=== PATIENT | male | born 1960 | race Caucasian/White ===

== ENCOUNTER 2022-08-08 16:10 | Emergency (ER) | payer MEDICAID, SELFPAY ==
[2022-08-08 16:11] VITALS: BP 185/110; PULSE 55; RESP 18; TEMP 36.7; O2SAT 100; BMI 28.5
--- NOTE | 2022-08-08 16:51 | ECG_ITS ---
APPROVED REPORT Exam: Resting ECG HR:49 bpm ECG Measurements Heart Rate 49 AXES NC 161 P 59 QRSd 98 QRS 0 QT 446 T 43 QTc 418 Conclusion SINUS BRADYCARDIA BORDERLINE ECG UNCONFIRMED REPORT Electronically signed by : Kartik Templeton MD 08/09/2022 20:03:49
[2022-08-08 17:01] VITALS: BP 175/107; PULSE 55; O2SAT 97
[2022-08-08 17:07] LABS: Chloride 102 mmol/L (98-107); Potassium 4.7 mmoL/L (3.5-5.1); Sodium 140 mmol/L (136-145)
[2022-08-08 17:10] LABS: Alanine Aminotransferase 126 U/L (12-78); Albumin Level 4.7 g/dl (3.5-5.0); Albumin/Globulin Ratio 1.5 (1.1-1.8); Alkaline Phosphatase 96 U/L (38-126); Anion Gap 13.7 mEq/L (5-15); Aspartate Amino Transferase 83 U/L (17-59); Bilirubin,Total 1.4 mg/dl (0.2-1.3); Blood Urea Nitrogen 11 mg/dl (9-20); Carbon Dioxide 29 mmol/L (22.0-30.0); Creatinine Clearance Estimated 101 mL/min (50-200); Estimated Glomerular Filt Rate 85 ml/min (>60); GFR (African American) 103 ML/MIN (>60); Globulin 3.1 g/dL (1.3-3.2); Total Protein,Serum 7.8 g/dl (6.3-8.2)
[2022-08-08 17:11] LABS: Calcium 8.7 mg/dl (8.4-10.2); Glucose 90 mg/dl (74-100)
--- NOTE | 2022-08-08 17:15 | PC.NURSE ---
DR. STEVENS AT BEDSIDE
[2022-08-08 17:24] LABS: Basophils # 0.1 K/mm3 (0-0.2); Basophils % 1.7 % (0.1-2.0); Eosinophils # 0.6 K/mm3 (0.0-0.4); Eosinophils % 8.6 % (0.1-12.0); Hematocrit 49.5 % (42.0-52.0); Hemoglobin 17.1 g/dL (14.1-18.0); Lymphocytes # 2.3 K/mm3 (0.7-4.5); Lymphocytes % 32.3 % (10-50); Mean Corpuscular HGB Conc 34.5 g/dL (31.8-35.4); Mean Corpuscular Hemoglobin 32.7 pg (27.0-31.2); Mean Corpuscular Volume 94.6 fl (80-94); Monocytes # 0.4 K/mm3 (0.1-1.0); Monocytes % 5.7 % (1.7-9.3); Neutrophils # 3.6 K/mm3 (1.8-7.8); Neutrophils % 51.7 % (37.0-80.0); Platelet Count 280 K/mm3 (142-424); Red Blood Count 5.23 M/mm3 (4.60-6.20); Red Cell Distribution Width 12.6 % (11.5-17.5)
[2022-08-08 17:25] LABS: Troponin I < 0.01 ng/ml (0.00-0.034)
--- NOTE | 2022-08-08 17:26 | XR_ITS ---
PROCEDURE INFORMATION: Exam: XR Chest Exam date and time: 08/08/2022 5:24 PM Age: 62 years old Clinical indication: Right-sided; Patient HX: Right sided scapula pain, hypertension; Additional info: Pain R scapular area TECHNIQUE: Imaging protocol: Radiologic exam of the chest. Views: 2 views. COMPARISON: No relevant prior studies available. FINDINGS: Lungs: Clear lungs. Pleural spaces: No pneumothorax. No sizable pleural effusion. Heart/Mediastinum: No cardiomegaly. Bones/joints: Unremarkable. IMPRESSION: Clear lungs.
--- NOTE | 2022-08-08 17:26 | XR_ITS ---
PROCEDURE INFORMATION: Exam: XR Cervical Spine Exam date and time: 08/08/2022 5:25 PM Age: 62 years old Clinical indication: Radicular pain (radiculopathy); Cervical region; Patient HX: Neck pain/stiffness; Additional info: Possible radicular pain TECHNIQUE: Imaging protocol: Radiologic exam of the cervical spine. Views: 2 or 3 views. COMPARISON: CR XR CHEST 2V 08/08/2022 5:24 PM FINDINGS: Bones/joints: Disc space narrowing C5-C6 and C6-C7. Reversal of the usual cervical lordosis. Soft tissues: Unremarkable. IMPRESSION: 1. Disc space narrowing C5-C6 and C6-C7. 2. Reversal of the usual cervical lordosis.
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
--- NOTE | 2022-08-08 17:33 | PC.NURSE ---
PT TO XR
[2022-08-08 17:39] VITALS: BP 180/102; PULSE 53; RESP 18; O2SAT 98
--- NOTE | 2022-08-08 17:47 | PC.NURSE ---
PT MEDICATED PER EMAR, NO NEEDS AT THIS TIME
--- NOTE | 2022-08-08 18:43 | PC.NURSE ---
DR. STEVENS AT BEDSIDE
[2022-08-08 19:15] VITALS: BP 170/96; PULSE 60; RESP 18; TEMP 36.8; O2SAT 99
== END 2022-08-08 19:15 | disposition home or self-care (01) ==
PROVIDERS: Emergency Provider Emergency Medicine; PCP Family Medicine
DX: M54.6 Pain in thoracic spine (principal); I10 Essential (primary) hypertension; M54.12 Radiculopathy, cervical region
CPT/HCPCS: 71046; 72040; 80053; 84484; 85025; 93005; 96374; 96375; 99285; J2405

== ENCOUNTER 2024-11-19 11:54 | Emergency (ER) | payer MEDICARE, SELFPAY ==
[2024-11-19] VITALS (7 sets, daily range): BP systolic 161–208; BP diastolic 90–104; PULSE 62–64; RESP 12–18; TEMP 36.7–36.8; O2SAT 98–99; BMI 28.3
--- NOTE | 2024-11-19 12:06 | ECG_ITS ---
APPROVED REPORT Exam: Resting ECG HR:58 bpm ECG Measurements Heart Rate 58 AXES ID 155 P 56 QRSd 99 QRS -2 QT 410 T 47 QTc 407 Conclusion SINUS BRADYCARDIA BORDERLINE ECG No STEMI Electronically signed by : ROB ERNANDEZ, 11/20/2024 00:22:10
--- NOTE | 2024-11-19 12:06 | PC.NURSE ---
pt brought back to room, report received from yunier sharp
--- OUTSIDE RECORDS SUMMARY | 2024-11-19 12:15 | XMS_ITS | Data Portability ---
Author Organization L[facility] - YAHAIRA - Kassidy & YAHAIRA Villalpando ADMIN Address [address] [place] [id number] Care Team Providers Care Bandage Maker Name Role Phone [facility] Primary Care Provider Assessment Encounter Date Assessment Date Assessment LastModified by Organization Details LastModified Time 01/06/2023 01/06/2023 since the patient at this time is completely asymptomatic for the last 2 months he has decided to wait. I have explained to him the problem that he has that is most likely gallbladder dyskinesia with a lacy gallbladder and he understood what the problem is. So the plan is for observation and if he has pain again he will call us to have his gallbladder removed. Not available 01/06/2023 10:00:47 Plan of Treatment Reminders Order Date Submit Date Provider Last Modified By Organization Details Last Modified Time Details Appointments None recorded. Lab CMP, serum or plasma 2022 023 [email or web address] 2 [facility] (Lab Registration) , [address] [place] [address] [place], [address], 3 07:21:50 Referral vascular surgeon referral 2022 023 [email or web address] 2 Not available 3 15:11:51 Procedures None recorded. Surgeries None recorded. Imaging US, abdomen, limited - Pt is scheduled for US right upper quadrant 10/25 @ 4:00 2022 023 [facility] [address] [place] [address] [place], [address], 3 17:05:37 XR, abdomen, 1 view 2022 023 [facility] (Central Scheduling), [address] [place] [address] [place], [address], 3 17:05:36 NM, hepatobilia ry scan, w/ CCK - First available not on a Tuesday 023 4 [facility] Centralized Scheduling, [address] [place], [address], 3 15:29:14 Medication Orders pantoprazol e 40 mg tablet,vitaly yed release 2022 023 [email or web address] [facility][id number], [address], [phone], 3 12:16:54 ondansetron 4 mg disintegrat ing tablet 2022 023 [facility][id number], [address], [id number], 3 09:23:17 Patient TargetsNo targets recorded. Patient InstructionsNo instructions recorded. Reason for Referral Vascular Surgeon Referral fo r Abdominal aortic aneurysm Referring Physician: Estrella Shahid, Gastroenterology, Encounter Date: 10/25/2022 Results Created Date Observation Date Name Description Value Unit Range Abnormal Flag Note LastModifiedBy Organization Detail LastModifiedTime 10/26/1910/25/2022 COMP METAB OLIC PANEL sodium 140 mmol/ L 137-14 7 Not Available [facility] (Pre-Op Clinic) [address] [place] [address] [place], [address], 10/25/2022 18:39:31 10/26/19 23 10/25/2022 COMP METAB OLIC PANEL potassium 3.7 mmol/ L 3.5-5. 1 Not Available [facility] (Pre-Op Clinic) [address] [place] [address] [place], [address], 10/25/2022 18:39:31 10/26/19 23 10/25/2022 COMP METAB OLIC PANEL chloride 104 mmol/ L 98-110 Not Available [facility] (Pre-Op Clinic) [address] [facility] [place], [address], 10/25/2022 18:39:31 10/26/19 23 10/25/2022 COMP METAB OLIC PANEL carbon dioxide 29 mmol/ L 21-30 Not Available [facility] (Pre-Op Clinic) [address] [facility] [place], [address], 10/25/2022 18:39:31 10/26/19 23 10/25/2022 COMP METAB OLIC PANEL anion gap 7 mmol/ L 6-14 Not Available [facility] (Pre-Op Clinic) [address] [facility] [place], [address], 10/25/2022 18:39:31 10/26/19 23 10/25/2022 COMP METAB OLIC PANEL glucose 96 mg/dL 70-115 Not Available [facility] (Pre-Op Clinic) [address] [facility] [place], [address], 10/25/2022 18:39:31 10/26/19 23 10/25/2022 COMP METAB OLIC PANEL BUN 17 mg/dL 9-20 Not Available [facility] (Pre-Op Clinic) [address] [facility] [place], [address], 10/25/2022 18:39:31 10/26/19 23 10/25/2022 COMP METAB OLIC PANEL creatinine 0.9 mg/dL 0.5-1. 5 Not Available [facility] (Pre-Op Clinic) [address] [facility] [place], [address], 10/25/2022 18:39:31 10/26/19 23 10/25/2022 COMP METAB OLIC PANEL BUN/creatini ne ratio 19 ratio 10-20 Not Available [facility] (Pre-Op Clinic) [address] [place] [address] [place], [address], 10/25/2022 18:39:31 10/26/19 23 10/25/2022 COMP METAB OLIC PANEL glom filtration rate 90 mL/mi n >60- Not Available [facility] (Pre-Op Clinic) [address] [facility] [place], [address], 10/25/2022 18:39:31 10/26/19 23 10/25/2022 COMP METAB OLIC PANEL osmolality (calculated) 293 mosmo l/kg 275-30 1 OSMOL ALITY IS A CALCU LATIO N UTILI ZING THE SERUM /PLAS MA SODIU M, GLUCO SE AND UREA NITRO GEN (BUN) LEVEL S. FOR THE MOST ACCUR ATE RESUL T A MEASU RED SERUM OSMOL ALITY IS SUGGE STED. Not Available [facility] (Pre-Op Clinic) [address] [facility] [place], [address], 10/25/2022 18:39:31 10/26/19 23 10/25/2022 COMP METAB OLIC PANEL total protein 8.2 g/dL 6.2-8. 2 Not Available [facility] (Pre-Op Clinic) [address] [place] [address] [place], [address], 10/25/2022 18:39:31 10/26/19 23 10/25/2022 COMP METAB OLIC PANEL albumin 4.9 g/dL 3.5-5. 0 Not Available [facility] (Pre-Op Clinic) [address] [place] [address] [place], [address], 10/25/2022 18:39:31 10/26/19 23 10/25/2022 COMP METAB OLIC PANEL calcium 9.2 mg/dL 8.5-10 .8 Not Available [facility] (Pre-Op Clinic) [address] [place] [address] [place], [address], 10/25/2022 18:39:31 10/26/19 23 10/25/2022 COMP METAB OLIC PANEL bilirubin total 2.9 mg/dL 0.2-1. 3 high Not Available [facility] (Pre-Op Clinic) [address] [facility] [place], [address], 10/25/2022 18:39:31 10/26/19 23 10/25/2022 COMP METAB OLIC PANEL AST (SGOT) 41 IU/L 17-59 Not Available [facility] (Pre-Op Clinic) [address] [place] [address] [place], [address], 10/25/2022 18:39:31 10/26/19 23 10/25/2022 COMP METAB OLIC PANEL ALT (SGPT) 68 IU/L 0-50 high Pleas e note new refer ence inter vishnu for ALT. Due to a recen t manuf actur er metho dolog y michaud e, the refer ence inter vishnu for ALT is lower effec tive November 27, 2020. Not Available [facility] (Pre-Op Clinic) [address] [place] [address] [place], [address], 10/25/2022 18:39:31 10/26/19 23 10/25/2022 COMP METAB OLIC PANEL alk phosphatase 84 IU/L 38-126 Not Available [facility] (Pre-Op Clinic) [address] [place] [address] [place], [address], 10/25/2022 18:39:31 10/26/19 23 10/25/2022 COMP METAB OLIC PANEL note Unles s other bradshaw noted testi ng perfo [facility] at: [facility] [address] [place] [address] Bola faye MD Not Available [facility] (Pre-Op Clinic) [address] [place] [address] [place], [address], 10/25/2022 18:39:31 10/26/19 23 10/25/2022 XR, abdom en, 1 view [facility] [address] [place] [address] (Phone ) DIAGNO STIC IMAGIN G REPORT ------ ------ ------ ------ ------ ------ ------ ------ ----- Rain bairon Name: RIZWAN HONG No: [id number] 1 Medica l Record No: [id number] Date of : 1959 Access ion No: [id number] Date of Exam: 2022 Pavithrabriana waddell Type: Outpat ient Orderi ng Physic chele: ESTRELLA SARABIA ------ ------ ------ ------ ------ ------ ------ ------ ----- FINAL REPORT PROCED URE: ABD KUB 1V CLINIC AL HISTOR Y: Right upper quadra nt pain COMPAR MICHELLE: None FINDIN GS: ABDOME N SINGLE VIEW / KUB A single view of the abdome n was obtain ed with a coned down view of the pelvis . There is a nonspe cific bowel gas patter n. There is no signif icant stool burden . There are no abnorm ally dilate d loops of small bowel. No nephro lithia sis. There are probab le phlebo liths in the pelvis . IMPRES NOLBERTO: No acute proces s. Review ed, Interp reted and Dictat ed by Goldie Reynolds MD Transc ribed by Kaye Dong Authbriana ticate d and Electr onical ly Signed by Goldie Reynolds MD on 2022 05:03: 04 PM EASTCHELY N CC'ed Logic: Orderi ng Provid er: CHEPE DE LA ROSA CC Provid er: SHEKHAR DEMPSEY Attend ing Provid er: CHEPE DE LA ROSA Referr ing Provid er: CHEPE DE LA ROSA Admitt ing Provid er: CHEPE [email or web address] [facility] [address] [place] [address] [place], [address], 10/26/2022 12:49:31 10/26/19 23 10/25/2022 US, abdom en, limit ed [facility] [address] [facility] [place] [address] (Phone ) DIAGNO STIC IMAGIN G REPORT ------ ------ ------ ------ ------ ------ ------ ------ ----- Rain bairon Name: RIZWAN HONG No: [id number] 1 Medica l Record No: [id number] Date of : 1959 Access ion No: [id number] Date of Exam: 2022 Pavithrabriana waddell Type: Outpat ient Orderi ng Physic chele: ESTRELLA SARABIA ------ ------ ------ ------ ------ ------ ------ ------ ----- FINAL REPORT PROCED URE: US RIGHT UPPER QUADRA NT TECHNI QUE: Ultras ound images of the right upper quadra nt were obtain ed. CLINIC AL HISTOR Y: Epigas tric pain and pressu re, nausea and vomiti ng COMPAR MICHELLE: None FINDIN GS: Limite d images of the pancre as are obscur ed by bowel gas. The liver is normal in size. There is fatty infilt ration . There is a small amount of perich olecys tic fluid. There is gone bladde r wall thicke charlee at 4 mm. There are no gallst ones. Common duct is normal measur ing 4 mm. Consid er acalcu adair cholec ystiti s. HIDA scan may be helpfu l. In the mid abdomi nal aorta there is focal dilata tion. The lumen at this level measur es 33 mm. There is hypoec hoic materi al in the catering assistant ior aspect of the lumen and actual AP diamet er of the aneury sm may be closer to [address] scan for furthe r evalua tion. Limite d images of the right kidney are unrema rkable . IMPRES NOLBERTO: Gallbl adder wall thicke charlee and minima l perich olecys tic fluid withou t gallst one. Consid er acalcu adair cholec ystiti s. HIDA scan may be helpfu l. Abdomi nal aortic aneury sm as descri bed. CT abdome n and pelvis with IV contra st may be helpfu l. Fatty infilt ration of the liver. Review ed, Interp reted and Dictat ed by Goldie Reynolds MD Transc ribed by Kaye Dong Authen ticate d and Electr onical ly Signed by Goldie Reynolds MD on 2022 05:03: 04 PM LINDA Aragon CC'ed Logic: Orderi ng Provid er: CHEPE DE LA ROSA CC Provid er: SHEKHAR DEMPSEY Attend ing Provid er: CHEPE DE LA ROSA Referr ing Provid er: HCEPE DE LA ROSA Admitt ing Provid er: CHEPE [email or web address] [facility] (Central Scheduling) [address] [place] [address] [place], [address], 10/26/2022 12:49:31 01/07/20 23 11/10/2022 imagi ng inter preta tion No observ ation record ed. [address] (Radiology) [address] [place] [address] , [place], [address], 01/07/2023 11:17:55 Result Notes None recorded. Problems Name Problem SNOMED Code Status Onset Date Resolution Date Notes Provider Name and Address Organization Details Recorded Time Hypercholestero lemia 21327723 Active 2022 [facility] Brown - [facility] [place] & [place] 3 11:12:54 Hypertensive disorder 67297036 Active 2022 Virginia palma, [facility] - [facility] - [place] & [place] 3 11:13:05 Problem Notes None recorded. Procedures Surgical History Date Name Laterality Status Provider Name and Address Organization Details Recorded Time colonoscopy completed Virginia BLACKMON - [facility] - [place] & [place] 10/25/2022 11:13:25 Imaging Results Imaging Date Name Status LastModified by Organization Details LastModified Time 10/25/2022 XR, abdomen, 1 view completed [email or web address] [facility] (Central Scheduling) [address] [place] [address] [place], [address], 10/26/2022 12:49:31 10/25/2022 US, abdomen, limited completed [email or web address] [facility] (Central Scheduling) [address] [place] [address] [place], [address], 10/26/2022 12:49:31 11/10/2022 imaging interpretation completed [address] (Radiology) [address] [place] [address] [place], [address], 01/07/2023 11:17:55 Procedure Notes None recorded. Medical Equipment None Reported. Allergies No known drug allergies Medications Name Sig Start Date Stop Date Status Note LastModified by Organization Details LastModified Time hydrocodone 5 mg-acetamin ophen 325 mg tablet TAKE 1 TABLET BY MOUTH EVERY 6 HOURS NEEDED FOR PAIN 01/06 completed Not Available Not Available Not Available lovastatin 40 mg tablet TAKE 2 TABLETS BY MOUTH EVERY DAY active Not Available Not Available No t Available hydralazine 25 mg tablet TAKE 1 TABLET BY MOUTH FOUR TIMES DAILY WITH FOOD 01/06 completed Not Available Not Available Not Available diazepam 2 mg tablet TAKE 1 TABLET BY MOUTH THREE TIMES DAILY NEEDED FOR SEDATION 10/24 completed Not Available Not Available Not Available pantoprazol e 40 mg tablet,vitaly yed release TAKE 1 TABLET BY MOUTH EVERY DAY DIRECTED active Not Available Not Available No t Available lisinopril 10 mg tablet TAKE 1 TABLET BY MOUTH EVERY DAY active Not Available Not Available No t Available hydrochloro thiazide 12.5 mg capsule TAKE 1 CAPSULE BY MOUTH DAILY 10/24 completed Not Available Not Available Not Available polyethylen e glycol 3350 17 gram/dose oral powder MIX 17GRAMS WITH CLEAR LIQUID AND DRINK BY MOUTH NEEDED FOR 2 DAYS 10/25 completed Not Available Not Available Not Available methylpredn isolone 4 mg tablets in a dose pack TAKE 1 TABLET BY MOUTH DAILY 10/24 completed Not Available Not Available Not Available ondansetron 4 mg disintegrat ing tablet DISSOLVE 1 TABLET ON THE TONGUE EVERY 6 TO 8 HOURS FOR 10 DAYS NEEDED active Not Available Not Available No t Available naproxen 500 mg tablet TAKE 1 TABLET BY MOUTH EVERY 8 HOURS NEEDED 01/06 completed Not Available Not Available Not Available Dulcolax (bisacodyl) 5 mg tablet,vitaly yed release Take 2 tablets every day by oral route for 1 day. 10/24 completed Not Available Not Available Not Available Laxative (bisacodyl) 5 mg tablet TAKE 2 TABLETS BY MOUTH ONCE FOR 1 DOSE 10/25 completed Not Available Not Available Not Available BinaxNOW COVID-19 Ag Self Test kit TEST DIRECTED TODAY 10/24 completed Not Available Not Available Not Available Vitals Date Recorded Body height Body mass index (BMI) Body weight Body temperature Oxygen saturation Oxygen saturation in Arterial blood by Pulse oximetry Heart rate Systolic blood pressure Diastolic blood pressure Provider Name and Address Organization Details Last Updated DateTime 3 182.88 cm 28.1 kg/m2 79396.6 2 g 97.3 [degF] 98 % 98 % 86 /min 120 mm[Hg] 96 mm[Hg] Virginia Brooke [facility] & [place] 3 11:21:59 Date Recorded Body height Body mass index (BMI) Body weight Heart rate Oxygen saturation Oxygen saturation in Arterial blood by Pulse oximetry Respiratory rate Systolic blood pressure Diastolic blood pressure Provider Name and Address Organization Details Last Updated DateTime 3 182.88 cm 28.1 kg/m2 27019.6 2 g 60 /min 98 % 98 % 18 /min 130 mm[Hg] 80 mm[Hg] Jarrett Harris [facility] & [place] 3 09:21:00 Social History Question Answer Notes LastModified by Organizat ion Details LastModified Time Tobacco Smoking Status Former Smoker Virginia Brooke palma [facility] & [place] 10/25/2022 11:28:11 What Is Your Level Of Alcohol Consumption? Moderate [email or web address] Information not available 10/25/2022 Do You Use Any Illicit Or Recreational Drugs? No Information not available 10/25/2022 Sex: Unknown Functional Status None recorded. Mental Status None recorded. Family History Relationship Description Onset Age of this Age Resolved Age Notes LastModified by Organization Details LastModified Time Brother Disorder of endocrine system pt. added direct ly (10/24) [email or web address] Not available 10/24/2022 12:54:25 Father Myocardial infarction pt. added direct ly (10/24) [email or web address] Not available 10/24/2022 12:54:51 Medical History No medical history recorded. Past Encounters Encounter ID Performer Location Encounter Start Date Encounter Closed Date Diagnosis/Indication Diagnosis SNOMED-CT Code Diagnosis ICD10 Code Diagnosis Note [id number] LION Castanon [facility] [address] [place] [address] [place] PAIGE [id number] 10/25/2022 11:00:35 10/26/2022 10:32:22 Right upper quadrant pain 079580340 R10.11 Patient is seen today for upper abdominal pressure and bloating with associated nausea and vomiting that occurred following colonoscop y on 10/20/2022 . Is tender to palpation in the RUQ on exam. CT abdomen and pelvis without contrast performed 10/22/2022 in the ER demonstrat ed distended gallbladde r. Gallbladde r ultrasound ordered, demonstrat es wall thickening with minimal pericholec ystic fluid, possibly acalculus cholecysti tis. HIDA scan ordered for further evaluation . Nausea and vomiting 1692 1999 R11.2 Plan to recheck labs today. Will send Zofran in for symptoms. Patient advised to go to ED if symptoms become intractabl e or dizziness/ headache worsens. Indigestion 556633547 K3 0 Abdominal aortic aneurysm 477044114 I71.40 CT abdomen and pelvis without contrast performed in [facility] demonstrat ed atheroscle rosis with fusiform infrarenal abdominal aortic aneurysm measuring 3.[address] angiogram of the aorta also performed, report states the infrarenal abdominal aorta measures 3.8 x 3.2 cm transverse ly and demonstrat es mild peripheral mural thrombus. No evidence of dissection . Recommend referral to vascular surgery further evaluation of these findings. ED criteria again reviewed with patient. [id number] Dennys Norman MD [facility] [address] [place] [address] [place] [address] 01/06/2023 09:13:16 01/10/2023 10:19:48 Dyskinesia of gallbladder 913129911 K82.8 Health Concerns Section Related Observation LastModified by Organization Detai ls LastModified Time None Recorded Concern Status LastModified by Organization Details LastModified Time None Recorded Advance Directives Directive None Recorded Payers Encounter Date Sequence Insurance Name Policy Number Policy Tinajero Covered Member ID Tinajero Member ID Guarantor Name 10/25/2022 1 [employer] - [place] (MEDICAID REPLACEMENT - HMO) Baljeet Sanz [id number] Baljeet Sanz 01/06/2023 1 [employer] [facility] (MEDICAID REPLACEMENT - HMO) Baljeet Sanz [id number] Baljeet Sanz Notes Date Note Type Note Provider Name and Address Organization Details Recorded Time 10/25/2022 text/html This is a 62 year-old male who is seen today for evaluation of abdominal bloating, nausea and vomiting. Patient underwent uncomplicated colonoscopy on 10/30/22. 2 small polyps were removed via cold snare. Patient states that the evening after the colonoscopy he developed abdominal pressure and bloating. He Took Gas-X with improvement of symptoms. The next day he woke up with nausea that gradually progressed throughout the day. His symptoms worsened and he eventually went to [facility]. At that time CT imaging ruled out colonic perforation and he was discharged to follow-up in our clinic. Since that time he has continued to have upper abdominal bloating, pressure and dyspepsia. He also notes loose stools since the colonoscopy. He also admits to headache and dizziness. He has taken ibuprofen several times for symptoms. Presently, he continues experiencing nausea, vomiting and dizziness with epigastric bloating. eating makes symptoms worse. He denies a history of GERD or previous symptoms similar to this. His medical history is significant for high cholesterol. He does not use tobacco. LION Castanon [address] [place] [address], [address], [place], [address], [place] - [facility] - [place] & [place] 10/26/2022 10:04:38 01/06/2023 text/html 63-year-old male patient comes to the office with complaints of opened off abdominal pain and discomfort. Since October he is being seen in emergency room and also by his PCP and a vascular surgeon. He was found to have an aortic aneurysm but it was small and observation was warranted. The HIDA that he had done stopped at 120 minutes because he did not show the gallbladder which at that time it was likely that he had acute cholecystitis. Other x-rays did not show any gallstones. He has history of high blood pressure. His blood pressure today was 107/70 which he takes lisinopril His blood pressure is 130/80, heart rate of 60 and 95% O2 sat on room air. He he has had episodes of vomiting. He refers that this all started after he had a colonoscopy. I think the vomiting was due to post anesthesia ileus. And not related to the gallbladder. He has had right knee arthroscopic surgery. He refers that this pain has not come back in the last 2 months. So we have agreed that he is going to wait and if he feels pain again then he most likely needs his gallbladder removed. This is gallbladder dyskinesia due to the findings on the HIDA. Dennys Norman MD [address] [facility], [place], [address], [facility] & [place] 01/06/2023 10:01:21
[2024-11-19 12:17] LABS: Basophils # 0.1 K/mm3 (0-0.2); Basophils % 0.6 % (0.1-2.0); Eosinophils # 0.4 K/mm3 (0.0-0.4); Eosinophils % 4.2 % (0.1-12.0); Hematocrit 47.6 % (42.0-52.0); Hemoglobin 16.2 g/dL (14.1-18.0); Lymphocytes # 2.1 K/mm3 (0.7-4.5); Lymphocytes % 23.1 % (10-50); Mean Corpuscular Hemoglobin 31.7 pg (27.0-31.2); Mean Corpuscular Volume 93.2 fl (80-94); Monocytes # 0.7 K/mm3 (0.1-1.0); Monocytes % 7.6 % (1.7-9.3); Neutrophils # 5.8 K/mm3 (1.8-7.8); Neutrophils % 64.1 % (37.0-80.0); Nucleated Red Blood Cells # 0 10^3/uL; Nucleated Red Blood Cells % 0 %; Platelet Count 251 K/mm3 (142-424); Red Blood Count 5.11 M/mm3 (4.60-6.20); Red Cell Distribution Width 11.4 % (11.5-17.5); Red Cell Distribution Width-SD 39.1 fL; White Blood Count 9.1 K/mm3 (4.8-10.8)
--- NOTE | 2024-11-19 12:20 | XR_ITS ---
FINAL REPORT CLINICAL HISTORY: L upper chest/clavicle pain FINDINGS: LEFT CLAVICLE 2 views were obtained. There is no acute fracture or dislocation. There are mild hypertrophic changes at the acromioclavicular joint. No acute soft tissue abnormality is seen. IMPRESSION: Mild hypertrophic changes at the acromioclavicular joint with no acute bony abnormality. Reviewed, Interpreted and Dictated by Ananda Cheema MD Transcribed by Kita Mi Authenticated and [facility]
--- NOTE | 2024-11-19 12:20 | XR_ITS ---
FINAL REPORT TECHNIQUE: Chest PA & Lateral CLINICAL HISTORY: L upper chest/clavicle pain FINDINGS: 2 views of the chest were performed. The heart size is normal. The mediastinum is within normal limits. There is no acute cardiopulmonary process. There are no pleural effusions. There is no pneumothorax. The bony thorax appears intact. IMPRESSION: No acute cardiopulmonary process. Reviewed, Interpreted and Dictated by Ananda Cheema MD Transcribed by Kita Mi Authenticated and [facility]
[2024-11-19 12:30] LABS: Alanine Aminotransferase 52 U/L (12-78); Albumin Level 4.5 g/dl (3.5-5.0); Albumin/Globulin Ratio 1.3 (1.1-1.8); Alkaline Phosphatase 102 U/L (38-126); Anion Gap 14.5 mEq/L (5-15); Aspartate Amino Transferase 45 U/L (17-59); Bilirubin,Total 2.2 mg/dl (0.2-1.3); Blood Urea Nitrogen 9 mg/dl (9-20); Calcium 9.1 mg/dl (8.4-10.2); Carbon Dioxide 27 mmol/L (22.0-30.0); Chloride 105 mmol/L (98-107); Creatinine Clearance Estimated 97 mL/min (50-200); Estimated Glomerular Filt Rate 84 ml/min (>60); GFR (African American) 102 ML/MIN (>60); Globulin 3.5 g/dL (1.3-3.2); Glucose 109 mg/dl (74-100); Potassium 4.5 mmoL/L (3.5-5.1); Sodium 142 mmol/L (136-145)
[2024-11-19] MEDS: LIDOCAINE 5% TRANSDERMAL PATCH 1 EACH TD (12:34)
[2024-11-19] MEDS: ACETAMINOPHEN 500MG TAB 1000 MG PO (12:34)
[2024-11-19] MEDS: DEXAMETHASONE 4MG/ML 1ML VIAL 10 MG IV (12:34)
[2024-11-19] MEDS: KETOROLAC 30MG/ML VIAL 30 MG IV (12:34)
[2024-11-19] MEDS: METHOCARBAMOL 500MG TABLET 500 MG PO (12:35)
--- NOTE | 2024-11-19 12:38 | PC.NURSE ---
pt ambulatory to scan
[2024-11-19 12:44] LABS: Troponin I < 0.01 ng/ml (0.00-0.034)
--- NOTE | 2024-11-19 12:57 | HMH.EDGENADL ---
Discharge Plan Disposition Patient Disposition: Home, Self-Care Condition: Good Prescriptions Prescriptions: New methocarbamol 750 mg tablet 750 mg PO Q8H PRN (Reason: pain) Qty: 20 0RF prednisone 20 mg tablet 40 mg PO DAILY 4 Days Qty: 8 0RF lisinopril 10 mg tablet 10 mg PO DAILY Qty: 30 2RF No Action lovastatin 40 mg tablet 40 mg PO DAILY Patient Comments: TAKE 1 TABLET BY MOUTH EVERY DAY Referrals Follow up/Referrals: Provider,Referral, MD [Primary Care Provider] - See instructions Activity Restrictions/Add. Instructions Additional Instructions/Restrictions: You were evaluated in the emergency department today. Please draft roller picker your prescriptions at the pharmacy and take them as prescribed. You may also take Tylenol and ibuprofen every 4-6 hours as needed as well. I also recommend [id number] lidocaine patches. Follow-up closely with your primary care provider. Return to the emergency department for new or worsening symptoms. Clinical Impressions Clinical Impression: High blood pressure Sternoclavicular joint strain Qualifiers: Encounter type: initial encounter Qualified Code(s): S29.011A - Strain of muscle and tendon of front wall of thorax, initial encounter Stand Alone Forms Stand Alone Forms: Work/School Release Instructions Patient Instructions: DI for Acute Pain -- Adult, DI for Neck Sprain, DI for Neck Pain Print Language Print Language: Faroese Discharge ED Provider: Dina Wu General Adult HPI General Chief complaint: PAIN Stated complaint: pain in collar bone throu L side of neck, high BP Time Seen by Provider: 11/19/24 12:13 Mode of Arrival: Ambulatory Source of Information: Patient Description of Symptoms (Recalled from ER Triage Doc. by RN): Pt presents for evalution of high BP, 230/111. Pt states he has been out of medication for 2 weeks. Pt states on tuesday he started to have left collar bone pain. Pt states he has tried to take ibuprofen and 2 aspirin History of Present Illness HPI narrative: This patient is a 64-year-old male with history of hypertension and cervical disc disease presenting to the emergency department for evaluation with concern for left clavicle pain. Patient states that on Tuesday night, he fell asleep while reading in bed with his head of his bed elevated, as he has an adjustable mattress. He woke up completely slumped down into the fold of the bed with his head in an awkward position, and since that has been having left-sided collarbone/neck pain. He states that he is also having a tension headache as a result of this. He tried taking ibuprofen and aspirin at home with minimal improvement. He noted that initially, he was able to still do his daily activities such as push-ups, strenuous activity, etc., however last night he was unable to sleep the pain was so bad. He denies any chest pain or shortness of breath. He does note that his blood pressures been high, but he states has been out of his blood pressure medication for 2 weeks and his primary care provider left so he does not have anyone to follow-up with. He states he supposed be on 40 mg of lisinopril. Related Data Home Medications ?Medication ?Instructions ?Recorded ?Confirmed lovastatin 40 mg tablet 40 mg PO DAILY Cholesterol 08/08/22 11/19/24 Previous Rx's ?Medication ?Instructions ?Recorded lisinopril 10 mg tablet 10 mg PO DAILY #30 tabs 11/19/24 methocarbamol 750 mg tablet 750 mg PO Q8H PRN pain #20 tabs 11/19/24 prednisone 20 mg tablet 40 mg (2 x 20 mg) PO DAILY 4 days 11/19/24 #8 tabs Allergies Allergy/AdvReac Type Severity Reaction Status Date / Time No Known Allergies Allergy Verified 11/19/24 11:27 [facility] Disclaimer: The information contained in this section may have been updated after the patient was seen, as this information can be updated by other users. Social History Smoking Status: Never smoker alcohol intake: never current occupational status: employed Travel in the last 8 weeks: None ROS Obtained: Yes All systems reviewed & no additional complaints except as documented Physical Exam General General appearance: alert and in no apparent distress Head Head exam: atraumatic and normocephalic Eye Eye exam: Present normal appearance, PERRL and EOMI ENT ENT exam: Present normal exam, normal oropharynx, mucous membranes moist and normal external ear exam Neck Neck exam: Present trachea midline and tenderness (L SCM TTP) Chest Chest inspection: Present tenderness Expanded Chest Exam Male Torso: 1. TTP at SC joint with muscle hypertonicity Respiratory Respiratory exam: Present normal lung sounds bilaterally; Absent respiratory distress, wheezes, stridor or accessory muscle use Cardiovascular Cardiovascular exam: Present regular rate and normal rhythm Abdominal Exam Abdominal exam: Present soft; Absent distention, tenderness or guarding Extremities Exam Extremities exam: Present normal inspection, full ROM and normal capillary refill; Absent tenderness or edema Back Exam Back exam: Present normal inspection and full ROM; Absent tenderness Neurological Exam Neurological exam: Present alert, oriented X3, CN II-XII intact and normal gait; Absent motor sensory deficit Psychiatric Psychiatric exam: Present normal affect and normal mood Skin Skin exam: Present warm and dry Medical Decision Making Medical Records Medical records reviewed: Yes I reviewed the patient's medical records. Screening: Per USPSTF and CDC recommendations, given the prevalence of disease in our region, it is our hospital?s policy to screen for HIV and viral Hepatitis for all patients aged 18 and over and those with ongoing risk factors. Alistair Inquiry Pt receiving controlled substance: No Vital Signs: 11/19/24 11:58 11/19/24 12:30 11/19/24 13:01 Temperature 98.3 F Temperature Source Oral Pulse Rate Pulse Rate [Right] 64 Respiratory Rate 18 12 16 Blood Pressure 164/92 H 175/103 H Blood Pressure [Right Arm] 208/104 H Blood Pressure Mean 127 Blood Pressure Mean [Right Arm] 138 Blood Pressure Source Blood Pressure Source [Right Arm] Automatic Cuff Blood Pressure Position Blood Pressure Position [Right Arm] Sitting 02 Sat by Pulse Oximetry 99 Oxygen Delivery Method Room Air 11/19/24 13:30 11/19/24 14:00 11/19/24 14:30 Temperature Temperature Source Pulse Rate Pulse Rate [Right] Respiratory Rate 12 15 16 Blood Pressure 161/96 H 161/92 H 161/90 H Blood Pressure [Right Arm] Blood Pressure Mean 127 115 113 Blood Pressure Mean [Right Arm] Blood Pressure Source Blood Pressure Source [Right Arm] Blood Pressure Position Blood Pressure Position [Right Arm] 02 Sat by Pulse Oximetry Oxygen Delivery Method 11/19/24 14:53 Temperature 98.0 F Temperature Source Pulse Rate 62 Pulse Rate [Right] Respiratory Rate 18 Blood Pressure 161/90 H Blood Pressure [Right Arm] Blood Pressure Mean Blood Pressure Mean [Right Arm] Blood Pressure Source Automatic Cuff Blood Pressure Source [Right Arm] Blood Pressure Position Sitting Blood Pressure Position [Right Arm] 02 Sat by Pulse Oximetry Oxygen Delivery Method Room Air Lab Data Lab results reviewed: Yes I reviewed the patient's lab results. Lab Results 11/19/24 11:40: HCV Ab TERRY w/Rflx PCR Qn Negative, HIV Ag/Ab Combo Qual Negative 11/19/24 12:10: WBC 9.1, RBC 5.11, Hgb 16.2, Hct 47.6, MCV 93.2, MCH 31.7 H, MCHC 34.0, RDW 11.4 L, Plt Count 251, MPV 9.0, Neut % (Auto) 64.1, Lymph % (Auto) 23.1, [place] % (Auto) 7.6, Eos % (Auto) 4.2, Baso % (Auto) 0.6, Neut # (Auto) 5.8, Lymph # (Auto) 2.1, [place] # (Auto) 0.7, Eos # (Auto) 0.4, Baso # (Auto) 0.1, Sodium 142, Potassium 4.5, Chloride 105, Carbon Dioxide 27, Anion Gap 14.5, BUN 9, Creatinine 0.90, Estimated Creat Clear 97, Estimated GFR 84, Est GFR ( Amer) 102, Glucose 109 H, Calcium 9.1, Total Bilirubin 2.2 H, AST 45, ALT 52, Alkaline Phosphatase 102, Troponin I < 0.01, Total Protein 8.0, Albumin 4.5, Globulin 3.5 H, Albumin/Globulin Ratio 1.3 11/19/24 12:10 11/19/24 12:10 Orders (Tests/Meds): ED MEDICATIONS Discontinued Medications Generic Name Dose Route Start Last Admin Trade Name Ygq PRN Reason Stop Dose Admin Acetaminophen 1,000 mg 11/19/24 12:20 11/19/24 12:34 Acetaminophen 500mg Tab PO 11/19/24 12:21 1,000 mg ONCE ONE Administration Dexamethasone Sodium Phosphate 10 mg 11/19/24 12:20 11/19/24 12:34 Dexamethasone 4mg/Ml 1ml Vial IV 11/19/24 12:21 10 mg ONCE ONE Administration Ketorolac Tromethamine 30 mg 11/19/24 12:20 11/19/24 12:34 Ketorolac 30mg/Ml Vial IV 11/19/24 12:21 30 mg ONCE ONE Administration Lidocaine 1 each 11/19/24 12:20 11/19/24 12:34 Lidocaine 5% Transdermal Patch TD 11/19/24 12:21 1 each ONCE ONE Administration Methocarbamol 500 mg 11/19/24 12:20 11/19/24 12:35 Methocarbamol 500mg Tablet PO 11/19/24 12:21 500 mg ONCE ONE Administration ORDERS Category Date Time Status CXR 2 view (NOT portable) [XR chest 2V] Stat Exams 11/19/24 12:20 Completed Clavicle XR left [XR clavicle LT] Stat Exams 11/19/24 12:20 Completed Complete Blood Count Auto Diff Stat Lab 11/19/24 12:10 Completed Comprehensive Metabolic Panel Stat Lab 11/19/24 12:10 Completed HIV Combo Stat Lab 11/19/24 11:40 Completed Hepatitis C Ab Qual. W/ RFX Stat Lab 11/19/24 11:40 Completed Trop I [Troponin I] Stat Lab 11/19/24 12:10 Completed ECG Data Tracing #1: I reviewed this ECG and interpreted as documented below: Sinus bradycardia with a ventricular rate of [address] changes concerning for ischemia. Normal interval ECG initial impression date: 11/19/24 ECG initial impression time: 12:08 Medical Decision Narrative: In summary, this patient is a 64-year-old man presenting to the Emergency Department for evaluation of left clavicle pain as well as high blood pressure. He states that his collarbone has been hurting ever since he slept on it wrong Tuesday. Differential diagnoses considered include but are not limited to musculoskeletal strain/sprain, SC joint separation, torticollis, ACS, hypertensive urgency, hypertensive emergency. Ruling out the most morbid conditions drove assessment. It should be noted patient's history includes hypertension which is not at goal therapy because he has been out of his lisinopril for 2 weeks. This complicates all aspects of care by increasing patient's risk for morbidity. I reviewed patient's past medical records and noted prior ED evaluation August 2022 with diagnosis of cervical disc disease. On exam, the patient has exquisite left sternoclavicular joint tenderness to palpation with muscle hypertonicity. He also has tenderness palpation of his left SCM, which I feel is likely causing his symptoms. His pain is producible with palpation and with movements, which is also reassuring. Cardiopulmonary exam is reassuring, pulses are equal. Doubt emergent pathology such as carotid dissection, aortic pathology, especially given nature of symptoms starting after he had slept on it wrong. Workup included x-rays of the left clavicle, 2 view chest x-ray, CBC, CMP, and troponin as well as EKG. EKG obtained is reassuring. Patient was given IV Toradol, IV dexamethasone, topical Lidoderm patch, and oral Robaxin for symptomatic improvement of pain.. I independently interpreted x-ray prior to the radiologist read and noted no clavicle fracture, no dislocation of the clavicle, no rib fracture or pneumothorax. Please see their read for final interpretation. Labs were obtained that demonstrated reassuring CBC and chemistry, negative troponin. On reassessment, patient had great improvement after administration of interventions above. He states he is feeling better and is ready to go home. I feel he is appropriate for discharge home with instructions for supportive management of muscle strain. He was given prescriptions for Robaxin and prednisone. Given his high blood pressure and being out of his lisinopril, which she confirmed was 10 mg on checking his phone, I did prescribe him a refill of lisinopril. He was given instructions for close follow-up, strict return precautions, and he was discharged after all questions were answered. Critical Care Critical Care Time Critical Care Time: No
[2024-11-19 13:22] LABS: HIV Combo NEGATIVE (Negative)
[2024-11-19 13:30] LABS: Hepatitis C Ab Qual. W/ RFX NEGATIVE (Negative)
--- NOTE | 2024-11-19 14:04 | PC.NURSE ---
Gave pt warm blanket. pt states he doesn't need anything at this time. Call light in reach.
== END 2024-11-19 15:07 | disposition home or self-care (01) ==
PROVIDERS: Emergency Provider Emergency Medicine
DX: S29.011A Strain of muscle and tendon of front wall of thorax, initial encounter (principal); I10 Essential (primary) hypertension; R00.1 Bradycardia, unspecified; G44.209 Tension-type headache, unspecified, not intractable; Z11.59 Encounter for screening for other viral diseases; Z11.4 Encounter for screening for human immunodeficiency virus [HIV]; X50.1XXA Overexertion from prolonged static or awkward postures, initial encounter
CPT/HCPCS: 71046; 73000; 80053; 84484; 85025; 86803; 87389; 93005; 96374; 96375; 99284; J1100; J1885